=== PATIENT | female | born 1985 | race African-American/Black ===

== ENCOUNTER 2021-11-19 00:02 | Emergency (ER) | payer OTHER ==
[2021-11-19] MEDS ORDERED: LIDOCAINE 1% 10 ML VIAL ID ONE (00:45)
[2021-11-19] MEDS ORDERED: PERTUSS(ACELL),DIPH,TET VAC/PF 0.5 ML SYRINGE IM. ONE (00:45)
[2021-11-19] MEDS ORDERED: POVIDONE-IODINE 10% 15 ML SOLUTION UD ONE (02:05)
[2021-11-19] MEDS ORDERED: BACITRACIN 0.9 GM PACKET OINTMENT TP ONE (02:59)
== END 2021-11-19 03:49 | disposition home or self-care (01) ==
LOC: EMS 00:05
DX: S61.211A Laceration without foreign body of left index finger without damage to nail, initial encounter (principal); S61.213A Laceration without foreign body of left middle finger without damage to nail, initial encounter; S61.215A Laceration without foreign body of left ring finger without damage to nail, initial encounter; W45.8XXA Other foreign body or object entering through skin, initial encounter; Y93.39 Activity, other involving climbing, rappelling and jumping off; Y92.89 Other specified places as the place of occurrence of the external cause; Y99.8 Other external cause status
CPT/HCPCS: 12004; 73130; 90471; 90715; 99283; J3490; 12002